=== PATIENT | female | born 1930 | race Caucasian/White ===

== ENCOUNTER 2017-10-15 19:00 | Inpatient (IN) | payer MEDICARE, BC ==
[~2017-10-15] VITALS: Ht 167.6 cm; Wt 70.8 kg
--- NOTE | 2017-10-15 19:10 | NUR ---
PT TO ER BED 6. PT BIB [facility] C/O GLF AND MORE "CONFUSION THAN USUAL" PER EMS. UNWITNESSED FALL. PT DENIES LOC. PT ALSO C/O COUGH AND CONGESTION X 1 WEEK. DAUGHTER AT BEDSIDE. PT PLACED IN GOWN AND ON GENERAL SCRAP WORKER. VSS/RESP EVEN UNLABORED/NAD NOTED/DENIES N-V-D/SKIN WARM AND DRY/ AOX2. AWAITING MD [place].
--- NOTE | 2017-10-15 19:30 | NUR ---
AT BEDSIDE FOR EVAL.
[2017-10-15] MEDS ORDERED: IV NS 0.9% 500 ML BAG IV ONE (20:00)
--- NOTE | 2017-10-15 20:00 | NUR ---
PT TO CT VIA STRETCHER, VSS.
--- NOTE | 2017-10-15 21:03 | NUR ---
PT VSS, DAUGHTER AT BEDSIDE. NURSE WILL CONTINUE TO PROVIDE SAFETY/COMFORT MEASURES.
[2017-10-15 21:08] LABS: BASOPHILS # (AUTO) 0.1 /CMM (0.0-0.2); BASOPHILS % (AUTO) 0.5 % (0.0-2.0); HEMATOCRIT 43 % (33-45); HEMOGLOBIN 14.5 g/dL (11.5-14.8); LYMPHOCYTES # (AUTO) 1.2 /CMM (0.8-4.8); LYMPHOCYTES % (AUTO) 10.7 % (20.0-44.0); MEAN CORPUSCULAR HEMOGLOBIN 31 PG (26.0-33.0); MEAN CORPUSCULAR HGB CONC 34 g/dl (31.0-36.0); MEAN CORPUSCULAR VOLUME 92 fL (82-100); MONOCYTES # (AUTO) 1.6 /CMM (0.1-1.30); MONOCYTES % (AUTO) 14.6 % (2.0-12.0); NEUTROPHILS # (AUTO) 8.3 /CMM (1.8-8.9); NEUTROPHILS % (AUTO) 74.2 % (43.0-81.0); PLATELET COUNT (AUTO) 246 /CMM (150-450); RDW COEFFICIENT OF VARIATION 13.3 (11.5-15.0); RED BLOOD CELL COUNT(AUTO) 4.68 MIL/uL (4.0-5.2); WHITE BLOOD COUNT (AUTO) 11.2 K/uL (4.3-11.0)
[2017-10-15 21:41] LABS: TROPONIN I 0.047 ng/mL (0.00-0.056)
[2017-10-15 22:06] LABS: CALCIUM, SERUM 9.4 mg/dL (8.5-10.1); CARBON DIOXIDE 24 mmol/L (21-32); CHLORIDE 105 mmol/L (98-107); CREATININE 0.8 mg/dL (0.6-1.3); GLUCOSE 124 mg/dL (74-106); POTASSIUM 4.1 mmol/L (3.5-5.1); SODIUM SERUM 144 mmol/L (136-145); UREA NITROGEN, BLOOD 21 mg/dL (7-18)
[2017-10-15 22:13] LABS: ALANINE AMINOTRANSFERASE 25 U/L (12-78); ALBUMIN 3.5 g/dL (3.4-5.0); ALKALINE PHOSPHATASE 90 U/L (46-116); ASPARTATE AMINOTRANSFERASE 61 U/L (15-37); BILIRUBIN,DIRECT 0.1 mg/dL (0.0-0.2); BILIRUBIN,TOTAL 0.7 mg/dL (0.2-1.0); TOTAL PROTEIN, SERUM 7.6 g/dL (6.4-8.2)
--- NOTE | 2017-10-15 22:20 | NUR ---
TELE 325-2
--- NOTE | 2017-10-15 22:20 | NUR ---
IN AND OUT CATH INSERTED USING SERVICE ESTABLISHMENT ATTENDANT, PT TOLERATED WELL. URINE SPECIMEN OBTAINED AND SENT TO THE LAB.
[2017-10-15] MEDS ORDERED: IV NS 0.9% 500 ML IV ONE (22:30)
[2017-10-15 22:54] LABS: APPEARANCE,URINE CLEAR (CLEAR); BILIRUBIN,URINE NEGATIVE (NEGATIVE); BLOOD, URINE NEGATIVE Ery/uL (NEGATIVE); KETONES,URINE 1+ (NEGATIVE); LEUKOCYTE ESTERASE ,URINE NEGATIVE (NEGATIVE); NITRITE, URINE NEGATIVE (NEGATIVE); PH,URINE 6.5 (5.0-8.0); PROTEIN,URINE TRACE mg/dl (NEGATIVE); UGLUCOSE NEGATIVE (NEGATIVE); UROBILINOGEN,URINE 0.2 EU/dL (0.2)
[2017-10-15 22:57] LABS: COLOR,URINE DARK YELLOW (YELLOW)
[2017-10-15 23:00] LABS: BACTERIA,URINE Few /HPF (None Seen); SQUAMOUS EPITHELIAL CELL,UR Few /HPF (None Seen); WBC,URINE 0-3 /HPF (0-3)
--- NOTE | 2017-10-15 23:31 | NUR ---
PT RESTING QUIETLY, DAUGHTER AT BEDSIDE. PT AROUSES TO VOICE. VSS.
[2017-10-16] VITALS (7 sets, daily range): BP systolic 124–147; BP diastolic 59–73
[2017-10-16] MEDS ORDERED: ENOXAPARIN SODIUM 40 MG/0.4 ML DISP.SYRIN SQ SCH
[2017-10-16] MEDS ORDERED: MAGNESIUM HYDROXIDE 30 ML UDC PO PRN
[2017-10-16] MEDS ORDERED: ZOLPIDEM TARTRATE 5 MG TABLET PO PRN
[2017-10-16] MEDS ORDERED: ONDANSETRON HCL/PF 4 MG/2 ML VIAL IVP PRN
[2017-10-16] MEDS ORDERED: Z GUARD REMEDY 2 OZ OINT TP PRN
[2017-10-16] MEDS ORDERED: HYDROCODONE/APAP 5/325MG 1 EACH TABLET PO PRN
[2017-10-16] MEDS ORDERED: ACETAMINOPHEN 325 MG TABLET PO PRN
[2017-10-16] MEDS ORDERED: MAG HYDROX/AL HYDROX/SIMETH 30 ML UDC PO PRN
--- NOTE | 2017-10-16 00:05 | NUR ---
REPORT GIVEN TO TRACEE FOR PATRICIA.
[2017-10-16] MEDS ORDERED: CEFTRIAXONE 1 G VIAL ONE (00:15)
[2017-10-16] MEDS ORDERED: ENOXAPARIN SODIUM 40 MG/0.4 ML DISP.SYRIN SQ ONE (00:15)
--- NOTE | 2017-10-16 00:25 | NUR ---
PT TRANSPORTED TO [place] [id number] WITH RN, ACLS PROTOCOL. VSS.
[2017-10-16] MEDS: CEFTRIAXONE 1 G in IV D5W 50 ML IV SCH (00:47)
[2017-10-16] MEDS: IV NS 0.9% 1,000 ML IV PRN (00:53)
--- NOTE | 2017-10-16 01:56 | NUR ---
MS RN NOTES RECEIVED PT FROM E.Maribel BISHOP AT 0018, PT IS A/O X 1, WITH PERIODS OF FORGETFULNESS, HEAD TO TOE SKIN ASSESSMENT IS DONE SKIN IS INTACT, NO S/S OF DISTRESS. DAUGHTER ERNA AT BEDSIDE, UNABLE TO PROVIDE LIST OF MEDICATIONS PER DTR SHE WILL BRING IT LATER AM. PT IN STABLE CONDITION. SAFETY MEASURES ARE IN PLACE, CALL LIGHT IS IN REACH. WILL CONTINUE TO MONITOR.
--- NOTE | 2017-10-16 02:06 | NUR ---
RECEIVE ORDER FROM LINDA Funes [facility] AND VERIFIED NOTED AND CARRIED OUT
[2017-10-16] MEDS ORDERED: ZOLPIDEM TARTRATE 10 MG TABLET PO PRN (05:30)
--- NOTE | 2017-10-16 06:14 | NUR ---
MS RN CLOSING NOTES ASLEEP AND EASILY AWAKEN, TOLERATING ROOM AIR 96%. STABLE CONDITION. NOT IN S/S OF DISTRESS. RESPIRATIONS EVEN AND UNLABORED. ALL NURSING CARE RENDERED. NEEDS ATTENDED AND ANTICIPATED, KEPT CLEAN AND DRY AND COMFORTABLE, GOOD SKIN CARE PROVIDED. ASSISTED REPOSITION Q2H. ON LOW BED AT ALL TIMES TO ENSURE SAFETY. SAFE HAZARD FREE ENVIRONMENT PROVIDED. CALL LIGHT WITHIN EASY TO REACH. WILL ENDORSE NEXT SHIFT CONTINUITY OF CARE
--- NOTE | 2017-10-16 07:47 | NUR ---
LOGGING SUPERVISOR OPENING NOTE PATIENT IS ALERT AND ORIENTED X1-2. NO PAIN AT THIS TIME. NO SOB OR DISTRESS NOTED. CALL LIGHT WITHIN REACH.SAFETY MEASURES IMPLEMENTED. ABLE TO COMMUNICATE NEEDS. TELE-MONITOR IN PLACE, SINUS RHYTHM AT 80. LEFT HAND INTACT AND PATENT NO REDNESS OR SWELLING NOTED, IV FLUIDS RUNNING AT 75 ML/HR TOLERATING WELL. LABS THIS MORNING RESULTS PENDING. WILL CONTINUE TO MONITOR THROUGHOUT SHIFT.
[2017-10-16 07:49] LABS: BASOPHILS % (AUTO) 0.5 % (0.0-2.0); EOSINOPHILS % (AUTO) 0.4 % (0.0-6.0); HEMATOCRIT 39 % (33-45); HEMOGLOBIN 13.3 g/dL (11.5-14.8); LYMPHOCYTES # (AUTO) 1.9 /CMM (0.8-4.8); LYMPHOCYTES % (AUTO) 24.5 % (20.0-44.0); MEAN CORPUSCULAR HEMOGLOBIN 32 PG (26.0-33.0); MEAN CORPUSCULAR HGB CONC 34 g/dl (31.0-36.0); MEAN CORPUSCULAR VOLUME 94 fL (82-100); MONOCYTES # (AUTO) 1.1 /CMM (0.1-1.30); MONOCYTES % (AUTO) 14.7 % (2.0-12.0); NEUTROPHILS # (AUTO) 4.7 /CMM (1.8-8.9); NEUTROPHILS % (AUTO) 59.9 % (43.0-81.0); PLATELET COUNT (AUTO) 219 /CMM (150-450); RDW COEFFICIENT OF VARIATION 13.4 (11.5-15.0); RED BLOOD CELL COUNT(AUTO) 4.16 MIL/uL (4.0-5.2); WHITE BLOOD COUNT (AUTO) 7.7 K/uL (4.3-11.0)
[2017-10-16 07:55] LABS: CALCIUM, SERUM 8.6 mg/dL (8.5-10.1); CARBON DIOXIDE 28 mmol/L (21-32); CHLORIDE 108 mmol/L (98-107); CREATININE 0.8 mg/dL (0.6-1.3); GLUCOSE 107 mg/dL (74-106); MAGNESIUM 1.8 mg/dL (1.8-2.4); PHOSPHORUS 4.1 mg/dL (2.5-4.9); POTASSIUM 3.8 mmol/L (3.5-5.1); SODIUM SERUM 146 mmol/L (136-145); UREA NITROGEN, BLOOD 20 mg/dL (7-18)
[2017-10-16 07:58] LABS: CHOLESTEROL 244 mg/dL (<200); HDL CHOLESTEROL 80 mg/dL (40-60); LDL 138 mg/dL (0-99); TRIGLYCERIDES 147 mg/dL (30-150)
[2017-10-16] MEDS: ASPIRIN 81 MG TAB.CHEW PO SCH (08:51)
[2017-10-16] MEDS ORDERED: OMEG1CAP PO (11:33)
[2017-10-16] MEDS ORDERED: LEVO25TA7 PO (11:33)
[2017-10-16] MEDS ORDERED: CLOP75TA15 PO (11:33)
[2017-10-16] MEDS ORDERED: MELA3TAB PO (11:33)
[2017-10-16] MEDS ORDERED: METF500T4 PO (11:33)
[2017-10-16] MEDS ORDERED: CHOL200026 PO (11:33)
[2017-10-16] MEDS ORDERED: ACET-73 PO (11:35)
[2017-10-16] MEDS ORDERED: PERMETHRIN 5% CRM 60 GM TUBE TP ONE (16:30)
[2017-10-16 17:45] LABS: IRON, SERUM 27 ug/dl (50-175); TOTAL IRON BINDING CAPACITY 199 ug/dl (250-450)
--- NOTE | 2017-10-16 18:51 | NUR ---
COSTUME MISTRESS CLOSING NOTE PATIENT IS ALERT AND ORIENTED x2. NO PAIN AT THIS TIME. NO SOB OR DISTRESS NOTED. CALL LIGHT WITHIN REACH AT ALL TIMES. SAFETY MEASURES IMPLEMENTED. ABLE TO COMMUNICATE NEEDS. ALL DUE MEDICATIONS GIVEN ORDERED. ALL NURSING CARE NEEDS ATTENDED TO NEEDED. IV INTACT AND PATENT NO REDNESS OR SWELLING NOTED, IV FLUIDS RUNNING AT THIS TIME. URINE SAMPLE COLLECTED. MRI WITHOUT CONTRAST WILL BE DONE TOMORROW AT 8:30, MRI CHECKLIST TO BE DONE. RAPID INFLUENZA SWAB DONE, RESULTS BACK INFLUENZA NOT DETECTED. WILL ENDORSE TO HAND ROLLER NURSE FOR PATRICIA Addendum: 10/16/17 at 1904 by AIDAN PEREZ RN MS RN CLOSING NOTE *
--- NOTE | 2017-10-16 20:00 | NUR ---
MS RETAIL PARTS PROFESSIONAL INITIAL NOTES SEEN PT IN BED AWAKE AND ALERT SITTING WHILE TALKING TO HER DAUGHTER. DENIES ANY PAIN OR ANY DISCOMFORT, NOT IN ANY ACUTE DISTRESS NOTED. STILL ON IVF OF NS AT 75ML/HR INFUSING ON HER LEFT HAND PATENT AND INTACT. SKIN WARM AND DRY TO TOUCH NO REDNESS NOTED. ENCOURAGE HER TO USED THE CALL LIGHT SYSTEM.KEPT HER WARM AND COMFORTABLE AT ALL TIMES. PLACE CALL LIGHT AT REACH. WILL CONTINUE TO MONITOR.
[2017-10-16] MEDS: ENOXAPARIN SODIUM 40 MG/0.4 ML DISP.SYRIN SQ SCH (21:09)
[2017-10-16] MEDS: ATORVASTATIN 10 MG TABLET PO SCH (21:10)
[2017-10-16] MEDS ORDERED: ATORVASTATIN 10 MG TABLET PO SCH (22:00)
--- NOTE | 2017-10-16 23:03 | NUR ---
DONOR SERVICES SPECIALIST/CLOSING NOTES PT RESTING AT THIS TIME AFTER ALL DUE MEDS GIVEN. SPONGE BATH ALSO RENDERED WITH THE HELPED OF PAULA PIERSON FOR PT COMFORT. KEPT HER WARM AND COMFORTABLE AT ALL TIMES. BED IN LOW AND LOCK IN POSITION WITH SIDE RAILS X2 UP AND BED ALARM SET FOR PT SAFETY. ENDORSE TO ANOTHER NURSE LIZ FOR CONTINUITY OF CARE.
--- NOTE | 2017-10-17 | NUR ---
MS RN NOTES ON BED SLEEPING,AROUSABLE TO TACTILE STIMULI,BREATHING REGULAR,NOT IN ANY FORM OF DISTRESS.WILL CONTINUE TO STATUS.
[2017-10-17] MEDS: CEFTRIAXONE 1 G in IV D5W 50 ML IV SCH (00:23)
--- NOTE | 2017-10-17 07:01 | NUR ---
MS RN NOTES NO CHANGE IN STATUS. CALM AND QUIET AT NOC,CALL LIGHT IN REACH,NEEDS ATTENDED
[2017-10-17 07:38] LABS: BASOPHILS % (AUTO) 0.5 % (0.0-2.0); EOSINOPHILS # (AUTO) 0.1 /CMM (0.0-0.7); EOSINOPHILS % (AUTO) 1.3 % (0.0-6.0); HEMATOCRIT 36 % (33-45); HEMOGLOBIN 12.5 g/dL (11.5-14.8); LYMPHOCYTES # (AUTO) 2.5 /CMM (0.8-4.8); LYMPHOCYTES % (AUTO) 34.7 % (20.0-44.0); MEAN CORPUSCULAR HEMOGLOBIN 32 PG (26.0-33.0); MEAN CORPUSCULAR HGB CONC 34 g/dl (31.0-36.0); MEAN CORPUSCULAR VOLUME 93 fL (82-100); MONOCYTES # (AUTO) 0.9 /CMM (0.1-1.30); MONOCYTES % (AUTO) 12.8 % (2.0-12.0); NEUTROPHILS # (AUTO) 3.6 /CMM (1.8-8.9); NEUTROPHILS % (AUTO) 50.7 % (43.0-81.0); PLATELET COUNT (AUTO) 201 /CMM (150-450); RDW COEFFICIENT OF VARIATION 13.2 (11.5-15.0); RED BLOOD CELL COUNT(AUTO) 3.88 MIL/uL (4.0-5.2); WHITE BLOOD COUNT (AUTO) 7.1 K/uL (4.3-11.0)
[2017-10-17 07:53] LABS: CALCIUM, SERUM 8.1 mg/dL (8.5-10.1); CARBON DIOXIDE 25 mmol/L (21-32); CHLORIDE 108 mmol/L (98-107); CREATININE 0.7 mg/dL (0.6-1.3); GLUCOSE 92 mg/dL (74-106); MAGNESIUM 1.7 mg/dL (1.8-2.4); PHOSPHORUS 3.2 mg/dL (2.5-4.9); POTASSIUM 3.6 mmol/L (3.5-5.1); SODIUM SERUM 141 mmol/L (136-145); UREA NITROGEN, BLOOD 17 mg/dL (7-18)
[2017-10-17 08:00] VITALS: BP 133/68
[2017-10-17 08:03] LABS: THYROID STIMULATING HORMONE 17.938 uIU/mL (0.358-3.74)
[2017-10-17 08:12] LABS: IRON, SERUM 45 ug/dl (50-175); TOTAL IRON BINDING CAPACITY 201 ug/dl (250-450)
[2017-10-17] MEDS: LEVOTHYROXINE SODIUM 25 MCG TABLET PO SCH (08:30)
[2017-10-17] MEDS: IV NS 0.9% 1,000 ML IV PRN (08:30)
[2017-10-17] MEDS: ASPIRIN 81 MG TAB.CHEW PO SCH (08:30)
[2017-10-17] MEDS: CLOPIDOGREL BISULFATE 75 MG TABLET PO SCH (08:30)
[2017-10-17] MEDS: METFORMIN 500 MG TABLET PO SCH (08:30)
[2017-10-17] MEDS ORDERED: LEVOTHYROXINE INJ 100 MCG VIAL IV ONE (12:00)
[2017-10-17] MEDS: Magnesium 1GM/D5W 100ML PREMIX 100 ML IV SCH ×2 (12:33→13:41)
[2017-10-17] MEDS: SOD FERRIC GLUC 125 MG in IV NS 0.9% 100 ML IV SCH (14:53)
[2017-10-17 16:00] VITALS: BP 158/72
--- NOTE | 2017-10-17 18:50 | NUR ---
RN NOTES PATIENT ALERT AND ORIENTED X4. BREATHING EVEN AND UNLABORED, NO S/SX OF DISTRESS NOTED, NEEDS ATTENDED AND MET, PATIENT ASSISTED WITH ADLS, ALL DUE MEDS GIVEN. PIV INSERTED ON LEFT FA, PATENT AND FLUSHES WELL, CALL LIGHT WITHIN REACH, BED ALARM ON, SAFETY MEASURES IN PLACED, WILL ENDORSE TO PODODERMATOLOGIST FOR PATRICIA.
--- NOTE | 2017-10-17 19:45 | NUR ---
MS RN OPENING NOTES PATIENT IS ALERT AND ORIENTED X 3. NO PAIN AT THIS TIME. NO SOB OR DISTRESS NOTED. IN SEMI GOODWIN POSITION WATCHING TV. CALL LIGHT WITHIN REACH.SAFETY MEASURES IMPLEMENTED. ABLE TO COMMUNICATE NEEDS. IV ACCESS TO LEFT FA, SL, INTACT AND PATENT. NO REDNESS OR SWELLING NOTED, NO IVF NEEDED PER MD, PT ABLE TO TAKE GOOD PO INTAKE. SAFETY MEASURES IN PLACE. BED IN LOW LOCKED POSITION. CALL LIGHT WITHIN REACH. WILL CONTINUE TO MONITOR THROUGHOUT SHIFT.
[2017-10-17 20:00] VITALS: BP 155/66
[2017-10-17] MEDS: ATORVASTATIN 10 MG TABLET PO SCH (21:50)
[2017-10-17] MEDS: ENOXAPARIN SODIUM 40 MG/0.4 ML DISP.SYRIN SQ SCH (21:52)
[2017-10-18] MEDS: CEFTRIAXONE 1 G in IV D5W 50 ML IV SCH (00:45)
--- NOTE | 2017-10-18 06:46 | NUR ---
MS RN CLOSING NOTES PATIENT SLEPT WELL @ NIGHT. ALERT AND ORIENTED X 3. NO PAIN NOTED. NO SOB OR DISTRESS NOTED. IN SEMI GOODWIN. ALL NEEDS ATTENDED TO & MET. CALL LIGHT WITHIN REACH.SAFETY MEASURES IMPLEMENTED. ABLE TO COMMUNICATE NEEDS. IV ACCESS TO LEFT FA, SL, INTACT AND PATENT. NO REDNESS OR SWELLING NOTED, NO IVF NEEDED PER MD, PT ABLE TO TAKE GOOD PO INTAKE. SAFETY MEASURES IN PLACE. BED IN LOW LOCKED POSITION. CALL LIGHT WITHIN REACH. WILL ENDORSE TO AM RN FOR CONTINUITY OF CARE.
[2017-10-18 06:53] LABS: BASOPHILS % (AUTO) 0.4 % (0.0-2.0); EOSINOPHILS # (AUTO) 0.1 /CMM (0.0-0.7); EOSINOPHILS % (AUTO) 2.3 % (0.0-6.0); HEMATOCRIT 36 % (33-45); HEMOGLOBIN 12.4 g/dL (11.5-14.8); LYMPHOCYTES # (AUTO) 2.4 /CMM (0.8-4.8); MEAN CORPUSCULAR HEMOGLOBIN 32 PG (26.0-33.0); MEAN CORPUSCULAR HGB CONC 34 g/dl (31.0-36.0); MEAN CORPUSCULAR VOLUME 93 fL (82-100); MONOCYTES # (AUTO) 0.8 /CMM (0.1-1.30); MONOCYTES % (AUTO) 13.2 % (2.0-12.0); NEUTROPHILS # (AUTO) 3.1 /CMM (1.8-8.9); NEUTROPHILS % (AUTO) 46.1 % (43.0-81.0); PLATELET COUNT (AUTO) 207 /CMM (150-450); RDW COEFFICIENT OF VARIATION 13.4 (11.5-15.0); RED BLOOD CELL COUNT(AUTO) 3.86 MIL/uL (4.0-5.2); WHITE BLOOD COUNT (AUTO) 6.4 K/uL (4.3-11.0)
[2017-10-18] MEDS ORDERED: LEVOTHYROXINE SODIUM 125 MCG TABLET PO SCH (07:30)
[2017-10-18 07:34] LABS: CALCIUM, SERUM 8.4 mg/dL (8.5-10.1); CARBON DIOXIDE 28 mmol/L (21-32); CHLORIDE 107 mmol/L (98-107); CREATININE 0.7 mg/dL (0.6-1.3); GLUCOSE 98 mg/dL (74-106); MAGNESIUM 1.8 mg/dL (1.8-2.4); PHOSPHORUS 3.1 mg/dL (2.5-4.9); POTASSIUM 3.8 mmol/L (3.5-5.1); SODIUM SERUM 142 mmol/L (136-145); UREA NITROGEN, BLOOD 12 mg/dL (7-18)
[2017-10-18 08:00] VITALS: BP 137/68
[2017-10-18] MEDS: LEVOTHYROXINE SODIUM 25 MCG TABLET PO SCH (08:54)
[2017-10-18] MEDS: METFORMIN 500 MG TABLET PO SCH (08:54)
[2017-10-18] MEDS: CLOPIDOGREL BISULFATE 75 MG TABLET PO SCH (08:54)
[2017-10-18] MEDS: SOD FERRIC GLUC 125 MG in IV NS 0.9% 100 ML IV SCH (13:43)
[2017-10-18 16:00] VITALS: BP 137/66
--- NOTE | 2017-10-18 19:25 | NUR ---
- Discharged instructions were given to both daughter & patient re: continue mobility in ARU with physical therapy , continue meds as instructed by MD , to fo follow-up care to own primary MD after discharge from ARU , to report new signs & symptoms to own primary MD. IV site was removed & applied pressure dressing , & patient was discharged to [facility] via [facility] ambulance, fully awake, verbally responsive, with daughter who will follow ambulance to [facility].
== END 2017-10-18 19:10 | DRG 689 ==
LOC: ER 19:05 → TELE 23:34 → MED 10-16 16:18
PROVIDERS: ADMIT Nurse Practitioner Acute Care; ATTEND Nurse Practitioner Acute Care
DX: N39.0 Urinary tract infection, site not specified (principal); G93.41 Metabolic encephalopathy; E86.0 Dehydration; E11.9 Type 2 diabetes mellitus without complications; E83.42 Hypomagnesemia; E78.5 Hyperlipidemia, unspecified; E03.9 Hypothyroidism, unspecified; D50.9 Iron deficiency anemia, unspecified; Z86.73 Personal history of transient ischemic attack (TIA), and cerebral infarction without residual deficits; Z85.3 Personal history of malignant neoplasm of breast; Z90.10 Acquired absence of unspecified breast and nipple; Z79.84 Long term (current) use of oral hypoglycemic drugs; Z79.899 Other long term (current) drug therapy; F03.90 Unspecified dementia, unspecified severity, without behavioral disturbance, psychotic disturbance, mood disturbance, and anxiety
CPT/HCPCS: 36415; 70450-TC; 70551-TC; 71010-TC; 72125-TC; 80048-TC; 80061-TC; 80076-TC; 81000-TC; 83540-TC; 83735-TC; 84100-TC; 84443-TC; 84484-TC; 85025-TC; 87081-TC; 87086-TC; 87400; 93307-TC; J0696; J1650; J2916; J3475; J7030; J7040; J7060